=== PATIENT | female | born 1985 | race Caucasian/White ===

== ENCOUNTER 2017-09-04 20:07 | Emergency (ER) | payer MEDICAID ==
[~2017-09-04] VITALS: Ht 157.5 cm; Wt 68.0 kg
[2017-09-04 20:20] VITALS: BP 136/78
== END 2017-09-05 | disposition left against medical advice (07) ==
LOC: ER 20:07
DX: Z53.21 Procedure and treatment not carried out due to patient leaving prior to being seen by health care provider (principal)